=== PATIENT | male | born 1985 | race American Indian/Alaskan Native ===

== ENCOUNTER 2019-01-02 08:41 | Emergency (ER) | payer OTHER ==
[2019-01-02 08:48] VITALS: BP 127/80
--- NOTE | 2019-01-02 09:08 | Emergency Department Report ---
HPI - General Chief Complaint: Extremity Injury, Lower Time Seen by Provider: 01/02/19 08:51 - HPI HPI: 33-year-old -[place] male presents to the emergency department with a complaint of pain to the left fifth/pinky toe has been going on intermittently over the past year but worsened severely last night. 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 No recent trauma. He denies any skin color change or swelling. It hurts when he is standing, better weight, walking. He has not taken anything for her symptoms prior to arrival. ED Past Medical Hx - Past Medical History Previous Medical History?: No - Surgical History Past Surgical History?: No - Social History Smoking Status: Current Every Day Smoker Substance Use Type: None - Medications Home Medications: Home Medications Medication Instructions Recorded Confirmed Last Taken Type Erythromycin [Erythromycin Ophth 0.5 inch OD QID 5 Days tube 01/29/15 Unknown Rx Oint] traMADol [Ultram 50 MG tab] 50 mg PO Q6HR PRN #14 tablet 01/29/15 Unknown Rx ED Review of Systems ROS: Stated complaint: (L) PINKY TOE PAIN/EXTREME Other details as noted in HPI Comment: All other systems reviewed and negative Musculoskeletal: arthralgia. denies: joint swelling Skin: denies: rash, lesions Neurological: denies: numbness, paresthesias Physical Exam - Physical Exam Vital Signs: Vital Signs 01/02/19 08:47 Temperature 98.0 F Pulse Rate 89 Respiratory 16 Rate Blood Pressure 127/80 O2 Sat by Pulse 99 Oximetry Physical Exam: GENERAL: The patient is well-developed well-nourished. HENT: Normocephalic. Atraumatic. Patient has moist mucous membranes. EYES: Extraocular motions are intact. NECK: Supple. Trachea is midline. CHEST/LUNGS: Clear to auscultation. There is no respiratory distress noted. HEART/CARDIOVASCULAR: Regular. There is no tachycardia. There is no murmur. ABDOMEN: There is no abdominal distention. SKIN: Skin is warm and dry. NEURO: The patient is awake, alert, and oriented. The patient is cooperative. The patient has normal speech. MUSCULOSKELETAL: There is some tenderness to palpation to the left fifth toe and in between the toes but no obvious deformity. There is no limitation range of motion. Capillary refill less than 2 seconds and +2 over 4 dorsalis pedis pulse. ED Course Vital Signs 01/02/19 08:47 Temperature 98.0 F Pulse Rate 89 Respiratory 16 Rate Blood Pressure 127/80 O2 Sat by Pulse 99 Oximetry ED Medical Decision Making - Radiology Data Radiology results: image reviewed interpreted by me: X-ray of the left foot with the toes does not show any fracture, dislocations, or any acute processes. - Medical Decision Making The patient presents with acute on chronic left foot toe pain. There is some reproducible tenderness to palpation but no obvious deformity. An x-ray was done that does not show any fracture, dislocation or any acute process. He will be referred to podiatry. - Differential Diagnosis fracture, dislocation, tendinitis, osteoarthritis Critical Care Time: No Critical care attestation.: If time is entered above; I have spent that time in minutes in the direct care of this critically ill patient, excluding procedure time. ED Disposition Clinical Impression: Toe pain, left Sprain of fifth toe, left Qualifiers: Encounter type: initial encounter Qualified Code(s): S93.505A - Unspecified sprain of left lesser toe(s), initial encounter Disposition: DC-01 TO HOME OR SELFCARE Is pt being admited?: No Condition: Stable Instructions: Arthralgia (ED) Additional Instructions: I have given you a referral for treatment of local podiatrists/doctors to follow up regarding your left toe pain. Return to the emergency Department with any worsening of your symptoms or any acute distress. Referrals: CHATA RENEE DPM [Staff Physician] - 3-5 Days THOMAS GUERRA MD [Staff Physician] - 3-5 Days Time of Disposition: 09:40
--- NOTE | 2019-01-02 09:27 | XRay Report ---
LEFT TOES, 3 views: History: Fifth toe pain. The bony architecture is intact. Bony alignment is normal. No soft tissue abnormalities are seen. The joint spaces appear preserved. IMPRESSION: Normal left toes.
== END 2019-01-02 09:47 | disposition home or self-care (01) ==
LOC: ED 08:41
DX: S93.505A Unspecified sprain of left lesser toe(s), initial encounter (principal); F17.200 Nicotine dependence, unspecified, uncomplicated; X58.XXXA Exposure to other specified factors, initial encounter; Y93.89 Activity, other specified; Y92.69 Other specified industrial and construction area as the place of occurrence of the external cause; Y99.0 Civilian activity done for income or pay
CPT/HCPCS: 99283

== ENCOUNTER 2020-10-06 09:31 | Emergency (ER) | payer BC ==
[2020-10-06 09:50] VITALS: BP 136/88
[2020-10-06] MEDS ORDERED: BALANCED SALT IRRIG 1 DROPS, TETRACAINE 0.5% 1 DROPS, FLUORESCEIN 1 MG OU ONE (10:20)
[2020-10-06] MEDS ORDERED: BALANCED SALT IRRIG (BSS) OPHTH SOLN 15 ML OU SCH (10:45)
[2020-10-06] MEDS ORDERED: TETRACAINE 0.5% OPHTH SOLN 4ML OU SCH (10:45)
[2020-10-06] MEDS ORDERED: FLUORESCEIN 1 MG STRIP OP SCH (10:45)
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
== END 2020-10-06 12:29 | disposition home or self-care (01) ==
LOC: ED 09:31
DX: H16.133 Photokeratitis, bilateral (principal); Z79.899 Other long term (current) drug therapy
CPT/HCPCS: 99282